=== PATIENT | male | born 1955 | race Caucasian/White ===

== ENCOUNTER 2020-01-30 21:40 | Inpatient (IN) | payer OTHER ==
[~2020-01-30] VITALS: Ht 185.4 cm; Wt 94.3 kg
[2020-01-30 21:45] VITALS: BP_SYST 203
--- NOTE | 2020-01-30 21:45 | NUR ---
Placed in room 3 . Placed on bus monitor, blood pressure machine and pulse oximeter. To gown for exam. Side rails up. Report given to ELIAS GAYTAN.
--- NOTE | 2020-01-30 22:00 | NUR ---
Pt BIB EMS with and son with c/o left elbow pain. Pt A&Ox4. Pt states he has mild chest pain for one day. Pt states chest pain is intermittent. Pt denies chest pain at this time. Pt states left shoulder pain that radiates to left elbow. Pt states left arm pain is 10/10. Pt denies HTN. Pt blood pressure 203/120 upon arrival to ER. Breath sounds bilaterally clear with no use of accessory muscles. Will continue to monitor.
--- NOTE | 2020-01-30 22:10 | NUR ---
ER at bedside examining patient.
[2020-01-30] MEDS ORDERED: NITROGLYCERIN LINGUAL 400 mCg/SPRAY TL ONE (22:15)
[2020-01-30] MEDS ORDERED: ASPIRIN 325 MG TABLET PO ONE (22:15)
[2020-01-30] MEDS ORDERED: LABETALOL 100 MG/ 20ML VIAL IVP ONE ×2 (22:15→23:45)
--- NOTE | 2020-01-30 22:15 | NUR ---
0.4 Nitroglycerin spray given sublingually 325 MG Aspirin Given Orally BP 216/135
--- NOTE | 2020-01-30 22:20 | NUR ---
0.4 Nitroglycerin spray given sublingually BP 208/134 HR 121
--- NOTE | 2020-01-30 22:25 | NUR ---
# 18 gauge angiocath placed to R AC. Use of asceptic technique. Opsite placed over site. Blood return noted. Blood for lab drawn from site. Flushed with 10 cc of normal saline. No evidence of infiltration noted. Patient tolerated well.
--- NOTE | 2020-01-30 22:25 | NUR ---
0.4 Nitroglycerin spray given sublingually BP 154/98 HR 98
[2020-01-30] MEDS ORDERED: ONDANSETRON HCL 4 MG/2 ML VIAL IVP ONE (22:30)
[2020-01-30] MEDS ORDERED: MORPHINE 4 MG/ML INJ. SYRINGE IVP ONE (22:30)
--- NOTE | 2020-01-30 22:40 | NUR ---
ER Dr. Rodgers at bedside examining patient.
--- NOTE | 2020-01-30 22:40 | NUR ---
Pt medicated per MD orders. Pt tolerated well.
[2020-01-30 22:54] LABS: CALCIUM 8.9 mg/dL (8.4-11.0); CREATININE 1.1 mg/dL (0.55-1.30); POTASSIUM 3.2 mmol/L (3.5-5.1)
[2020-01-30 22:59] LABS: ALBUMIN 4.2 g/dL (3.4-4.8); TOTAL BILIRUBIN 0.3 mg/dL (0.0-1.0)
[2020-01-30 23:02] LABS: BASOPHILS % (AUTO) 0.5 % (0.0-2.0); EOSINOPHILS # (AUTO) 0.3 K/uL (0.0-0.4); EOSINOPHILS % (AUTO) 2.6 % (0.0-4.0); HEMATOCRIT 47.2 % (36-54); HEMOGLOBIN 16.1 g/dL (14.0-18.0); LYMPHOCYTES # (AUTO) 3.2 K/uL (1.0-5.5); LYMPHOCYTES % (AUTO) 31.4 % (20.5-51.5); MEAN CORPUSCULAR HEMOGLOBIN 34 pg (27-31); MEAN CORPUSCULAR HGB CONC 34 % (32-36); MEAN CORPUSCULAR VOLUME 99 fL (79.0-98.0); MONOCYTES # (AUTO) 0.9 K/uL (0.0-1.0); MONOCYTES % (AUTO) 8.4 % (1.7-9.3); NEUTROPHILS # (AUTO) 5.8 K/uL (1.8-7.7); NEUTROPHILS % (AUTO) 57.1 % (40.0-70.0); PLATELET COUNT (AUTO) 286 K/uL (130-430); RED BLOOD CELL COUNT(AUTO) 4.77 MIL/uL (4.2-6.2); RED CELL DISTRIBUTION WIDTH 13.4 % (9.0-15.0); WHITE BLOOD COUNT (AUTO) 10.2 K/uL (4.8-10.8)
--- NOTE | 2020-01-30 23:21 | NUR ---
Medication reconciliation completed with information provided by pt at the bedside. Any prior medication reconciliation on file was reviewed and corrected.
[2020-01-30] MEDS ORDERED: NITROGLYCERIN 1 INCH (GM) OINT. TP ONE (23:45)
[2020-01-31] MEDS ORDERED: ENOXAPARIN SODIUM 100 MG/ML SYRINGE SUBCUT ONE (00:30)
--- NOTE | 2020-01-31 00:56 | NUR ---
Patient will be admitted to care of [facility]. Admitted to TELEMETRY unit. Awaiting bed placement. Belongings list completed. Complete and up to date summary report printed. SBAR report to be given at bedside with opportunity for questions.
--- NOTE | 2020-01-31 01:03 | NUR ---
Transfer to Telemetry 101B via ACLS protocol. Licensed nurse present. IV present no signs or symptoms of infiltration.
[2020-01-31] MEDS ORDERED: hydrALAZINE HCL 20 MG/ML VIAL IVP ONE (01:15)
--- NOTE | 2020-01-31 01:24 | NUR ---
ADMIT NOTE Received pt from ER to the floor with a diagnosis of NSTEMI. Admission process initiated. patient oriented to pain management, safety and call light-teach back done.
[2020-01-31 01:35] VITALS: BP_SYST 145
--- NOTE | 2020-01-31 02:00 | NUR ---
INITIAL NOTES: PT IS AWAKE, ALERT, ORIENTED X 4. NO PAIN AT THIS TIME. NO SOB, NOT DISTRESS.IV LOCK TO RIGHT AC GAUGE 18INTACT AND PATENT, , VITAL SIGN STABLE. ROOM AIR, AMBULATORY WITH STEADY GAIT. EDUCATE ABOUT PLAN OF CARE. ORIENT TO ROOM, CALL LIGHT, SAFETY , BATHROOM. PT VERBALIZED UNDERSTANDING. NEEDS ATTENDED, CALL LIGHT IN REACH, SIDE RAILS UP. LOW BED POSITION AND LOCK. WILL MONITOR.
--- NOTE | 2020-01-31 04:23 | NUR ---
PT CALL FOR PAIN MEDICATION FOR HIS LEFT ELBOW PAIN. PT STATED THAT MORPHINE IS NOT HELPING HIM. DISCUSS ABOUT NON NARCOTIC PAIN MEDICATION FOR ARTHRITIS. PT STATED HE WILL CALL AGAIN IF HE WANTS ONE. OFFER WARM BLANKET FOR HIS ELBOW. NEEDS ATTENDED CALL LIGHT IN REACH. WILL FOLLOW-UP.
[2020-01-31] MEDS ORDERED: ACETAMINOPHEN 325 MG TABLET PO PRN (06:00)
[2020-01-31] MEDS ORDERED: ALBUTEROL SULFATE 0.083% 2.5 MG/3 ML VIAL.NEB INH PRN (06:00)
[2020-01-31] MEDS ORDERED: hydrALAZINE HCL 20 MG/ML VIAL IVP PRN (06:00)
[2020-01-31] MEDS ORDERED: HYDROmorphone 1 MG INJ. 1 MG/ML AMPUL IVP PRN (06:00)
--- NOTE | 2020-01-31 06:00 | NUR ---
SLEEPING, COMFORTABLE, NO ACUTE DISTRESS. NO PAIN. STABLE.
[2020-01-31 06:55] LABS: BASOPHILS # (AUTO) 0.1 K/uL (0.0-0.2); BASOPHILS % (AUTO) 0.6 % (0.0-2.0); EOSINOPHILS # (AUTO) 0.1 K/uL (0.0-0.4); HEMATOCRIT 41.7 % (36-54); HEMOGLOBIN 14.4 g/dL (14.0-18.0); LYMPHOCYTES # (AUTO) 2.3 K/uL (1.0-5.5); LYMPHOCYTES % (AUTO) 25.1 % (20.5-51.5); MEAN CORPUSCULAR HEMOGLOBIN 34 pg (27-31); MEAN CORPUSCULAR HGB CONC 35 % (32-36); MEAN CORPUSCULAR VOLUME 99 fL (79.0-98.0); MONOCYTES # (AUTO) 0.9 K/uL (0.0-1.0); MONOCYTES % (AUTO) 9.9 % (1.7-9.3); NEUTROPHILS # (AUTO) 5.9 K/uL (1.8-7.7); NEUTROPHILS % (AUTO) 63.4 % (40.0-70.0); PLATELET COUNT (AUTO) 255 K/uL (130-430); RED BLOOD CELL COUNT(AUTO) 4.23 MIL/uL (4.2-6.2); RED CELL DISTRIBUTION WIDTH 13.4 % (9.0-15.0); WHITE BLOOD COUNT (AUTO) 9.3 K/uL (4.8-10.8)
[2020-01-31 07:13] LABS: ALBUMIN 3.4 g/dL (3.4-4.8); CALCIUM 8.3 mg/dL (8.4-11.0); CREATININE 0.96 mg/dL (0.55-1.30); POTASSIUM 3.5 mmol/L (3.5-5.1); TOTAL BILIRUBIN 0.3 mg/dL (0.0-1.0)
--- NOTE | 2020-01-31 07:19 | NUR ---
CLOSING: PT IS AWAKE, ALERT, WATCHING TV. NO PAIN. NOT DISTRESS. STABLE. BED SIDE REPORT GIVEN TO AM RN.
--- NOTE | 2020-01-31 07:25 | NUR ---
A/OX4. AMBULATORY, SR ON MONITOR. LAB INFORMED RN ON CRITICAL VALUE OF TROPONIN, AND LOCOMOTIVE MECHANIC APPRENTICE IS CALLED. CALL LIGHT IS EXPLAINED AND IN PLACE, BED LOCKED AT THE LOWEST POSITION, WILL CONTINUE TO MONITOR.
[2020-01-31 07:37] VITALS: BP_SYST 145
[2020-01-31] MEDS: LISINOPRIL 5 MG TABLET PO SCH (08:55)
[2020-01-31] MEDS: ASPIRIN 81 MG TAB.CHEW PO SCH (08:55)
[2020-01-31] MEDS: CARVEDILOL 6.25 MG TABLET (COREG) PO SCH ×2 (08:56→21:49)
[2020-01-31] MEDS: ATORVASTATIN 20 MG TABLET PO SCH (08:56)
[2020-01-31] MEDS: ENOXAPARIN SODIUM 100 MG/ML SYRINGE SUBCUT SCH ×2 (08:58→21:50)
[2020-01-31] MEDS ORDERED: NITROGLYCERIN 0.4 MG TAB.SUBL SL PRN (09:00)
[2020-01-31] MEDS ORDERED: *LOVENOX 1MG/KG Q12H/PHARMACY XX SCH (09:00)
--- NOTE | 2020-01-31 09:21 | NUR ---
[facility] CRISTI Phoned Yari, , and left a voicemail message that there is an order for patient to be transferred to [facility] tomorrow at 9 am. Requested she phone back to verify she received the message. Addendum: 01/31/20 at 1151 by Elizabet Clements LCSW Yari [facility] C[facility]STI is aware of the transfer order to [facility] for tomorrow and is working on it. She doesn't have a bed at this time.
[2020-01-31] MEDS: NITROGLYCERIN 0.2 MG/HR PATCH.TD24 TD SCH (10:15)
--- NOTE | 2020-01-31 10:48 | NUR ---
PATIENT IS RESTING, SR ON MONITOR. NO SIGNS OF DISTRESS NOTED.
[2020-01-31 12:23] VITALS: BP_SYST 146
--- NOTE | 2020-01-31 12:34 | NUR ---
PATIENT IS EATING LUNCH AT THIS TIME. TOLERATING WITHOUT DISTRESS.
--- NOTE | 2020-01-31 14:28 | NUR ---
PATIENT IS RESTING, WATCHING TV AT THIS TIME.
[2020-01-31 16:32] VITALS: BP_SYST 140
--- NOTE | 2020-01-31 16:41 | NUR ---
PATIENT IS RESTING AT BEDSIDE, READING A BOOK AT THIS TIME.
--- NOTE | 2020-01-31 18:30 | NUR ---
patient is eating dinner, tolerated without distress. No signs of syncope, dizziness, diaphoresis or chest pain noted.
--- NOTE | 2020-01-31 20:00 | NUR ---
pt lying in bed with at bedside ,v/s and assessment stable ,pt denies chest pain or discomfort
--- NOTE | 2020-02-01 | NUR ---
pt asleep no distress noted.
[2020-02-01 00:44] VITALS: BP_SYST 95
--- NOTE | 2020-02-01 04:09 | NUR ---
CALLED [facility] I SPOKE WITH MITCH O I ARRANGED A TRANSFER TO [facility] THIS MORNING I PUT TRANSFER ON WILL CALL MY CHARGE NURSE NICHELLE TOLD ME TO ARRANGE AND PUT TRANSFER ON WILL CALL FOR TODAY 02/01/2020. MITCH SAID BECAUSE PT IS ON A TELE MONITOR TRANSFER HAS TO BE ACLS INSTEAD OF BLS
[2020-02-01 06:44] LABS: BASOPHILS % (AUTO) 0.7 % (0.0-2.0); EOSINOPHILS # (AUTO) 0.2 K/uL (0.0-0.4); EOSINOPHILS % (AUTO) 3.3 % (0.0-4.0); HEMATOCRIT 39.3 % (36-54); HEMOGLOBIN 13.4 g/dL (14.0-18.0); LYMPHOCYTES # (AUTO) 2.3 K/uL (1.0-5.5); LYMPHOCYTES % (AUTO) 32.3 % (20.5-51.5); MEAN CORPUSCULAR HEMOGLOBIN 34 pg (27-31); MEAN CORPUSCULAR HGB CONC 34 % (32-36); MEAN CORPUSCULAR VOLUME 99 fL (79.0-98.0); MONOCYTES # (AUTO) 0.9 K/uL (0.0-1.0); MONOCYTES % (AUTO) 13.2 % (1.7-9.3); NEUTROPHILS # (AUTO) 3.6 K/uL (1.8-7.7); NEUTROPHILS % (AUTO) 50.5 % (40.0-70.0); PLATELET COUNT (AUTO) 242 K/uL (130-430); RED BLOOD CELL COUNT(AUTO) 3.97 MIL/uL (4.2-6.2); RED CELL DISTRIBUTION WIDTH 13.5 % (9.0-15.0); WHITE BLOOD COUNT (AUTO) 7.2 K/uL (4.8-10.8)
[2020-02-01 06:53] LABS: CALCIUM 8.6 mg/dL (8.4-11.0); CREATININE 1.19 mg/dL (0.55-1.30); POTASSIUM 4.1 mmol/L (3.5-5.1); TOTAL BILIRUBIN 0.6 mg/dL (0.0-1.0)
[2020-02-01 07:34] VITALS: BP_SYST 154
--- NOTE | 2020-02-01 07:50 | NUR ---
opening note patient is walking in his room, is present with him, alert and oriented, educated crayon grader light system and plan of care, patient and verbalized understanding, patient stated to me that he has not had anything to eat after midnight but has been drinking Gatorade and water, last time was at 0730, educated patient that he should not drink anything for now because of his proceudre, patient verbalized understanding, informed him about the transfer plan, patient verbalized understanding, said that Dr Cortez talked to them yesterday about it, will follow up with [facility] and [facility] about the transfer and keep patient updated, no signs of distress at this time, patient still complaining of left arm pain, no other needs addressed at this time, fall/safety precautions in place.
[2020-02-01] MEDS: NITROGLYCERIN 0.2 MG/HR PATCH.TD24 TD SCH (07:51)
[2020-02-01] MEDS: ENOXAPARIN SODIUM 100 MG/ML SYRINGE SUBCUT SCH (07:51)
[2020-02-01] MEDS: ASPIRIN 81 MG TAB.CHEW PO SCH (07:58)
[2020-02-01] MEDS: CARVEDILOL 6.25 MG TABLET (COREG) PO SCH (07:59)
[2020-02-01] MEDS: ATORVASTATIN 20 MG TABLET PO SCH (07:59)
[2020-02-01] MEDS: LISINOPRIL 5 MG TABLET PO SCH (07:59)
[2020-02-01 08:00] VITALS: BP_SYST 154
--- NOTE | 2020-02-01 09:30 | NUR ---
report given to SHARONDA spoke to Stacey from the [facility] unit.
--- NOTE | 2020-02-01 10:55 | NUR ---
PT TRANSFERRED Report given to Stacey at [facility]. Transfer packet with Transfer Orders and Medication Reconciliation form given to EMT with report. Exitcare provided. [facility] ID band removed, replaced with ID band with pt's name and . IV catheter left in. All belongings sent with patient. Patient left floor via gurney escorted by EMT in no distress.
== END 2020-02-01 10:55 | disposition short-term general hospital (02) | DRG 281 ==
LOC: SED 21:40 → STU 01-31 00:55
PROVIDERS: ADMIT Internal Medicine Hospice and Palliative Medicine; ATTEND Internal Medicine Hospice and Palliative Medicine
DX: I21.4 Non-ST elevation (NSTEMI) myocardial infarction (principal); I16.1 Hypertensive emergency; M19.90 Unspecified osteoarthritis, unspecified site; F17.210 Nicotine dependence, cigarettes, uncomplicated; I11.9 Hypertensive heart disease without heart failure; E87.6 Hypokalemia; Z82.49 Family history of ischemic heart disease and other diseases of the circulatory system; Z91.14 Patient's other noncompliance with medication regimen
CPT/HCPCS: 36415; 71045; 80053; 80061; 82550-TC; 83036; 83880; 84484; 85025; 85610-TC; 85730-TC; 93005; 93306; 96372; 96374; 96375; 96376; 99285; G0378; J0360; J1650; J2270; J2405; J3490